=== PATIENT | female | born 1945 | race Caucasian/White ===

== ENCOUNTER 2025-06-05 11:03 | Emergency (ER) | payer MEDICARE, OTHER, SELFPAY ==
--- NOTE | ~2025-06-05 | XR_ITS ---
Examination: XR wrist RT min 3V Clinical History: post reduction Comparison: Earlier same day Technique: 3 views right wrist Findings/impression: 1. Improved alignment of distal radial fracture. Reviewed, dictated and finalized at location R. ECT CONTROL OFFICER
--- NOTE | ~2025-06-05 | XR_ITS ---
Examination: XR wrist RT min 3V Clinical History: GLF Comparison: None Technique: 4 views right wrist Findings/impression: 1. Comminuted impacted fracture distal radius with intra-articular extension and dorsal distal angulation. Reviewed, dictated and finalized at location R. AL TUBE WINDER HELPER
[2025-06-05 11:07] VITALS: BP 175/70; PULSE 70; RESP 20; TEMP 36.4; O2SAT 97
--- OUTSIDE RECORDS SUMMARY | 2025-06-05 11:32 | XMS_ITS | Encounter Summary ---
Author Organization [facility] Address [address] [place] [address] Care Team Providers Care Chain Testing Machine Operator Name Role Phone Dawson Bravo MD Primary Care Provider [phone] Haritha Chavira MD Primary Care Provider [phone] Reason for Visit * Reason Onset Date Comments MEDICATION REFILL 12/15/2024 Encounter Details Date Type Department Care Team (Late Contact Info) Description 12/15/2024 Refill [facility] - Family Medicine [address] [place] [address], [place] [phone] Haritha Chavira MD [address] [place] [phone] MEDICATION REFILL Social History Tobacco Use Types Packs/Day Years Used Date Smoking Tobacco: Never Passive Smoke Exposure: Never Smokeless Tobacco: Never Alcohol Use Standard Drinks/Week Comments No 0 (1 standard drink = 0.6 oz pur e alcohol) PHQ-2 Answer Date Recorded Patient Health Questionnaire-2 Score 0 05/26/2024 Comments No Sex and Gender Information Value Date Recorded Sex Assigned at Female 07/30/2021 1:48 PM PERFORMANCE IMPROVEMENT CONSULTANT Legal Sex Female 12:00 PM CDT Gender Identity Female 07/30/2021 1:48 PM PERFORMANCE IMPROVEMENT CONSULTANT Sexual Orientation Not on file documented as of this encounter Plan of Treatment Upcoming Encounters Date Type Department Care Team (Late Contact Info) Description 06/30/2025 10:00 AM PERFORMANCE IMPROVEMENT CONSULTANT Office Visit [facility] Family Medicine [address] [facility], [place] [phone] Haritha Chavira MD [address] [facility] [address] [place] [phone] 08/04/2025 9:00 AM PERFORMANCE IMPROVEMENT CONSULTANT Office Visit [facility] - ENT [address] [facility], [facility] [address] [place] [phone] Charito Castanon, AuD [address] [facility] [address] [place] [address] 08/04/2025 9:30 AM PERFORMANCE IMPROVEMENT CONSULTANT Testing Visit [facility] - ENT [address] [facility], [facility] [address] [place] [phone] Charito Castanon AuD [address] [facility] [address] [place] [address] 05/12/2026 8:30 AM PERFORMANCE IMPROVEMENT CONSULTANT Office Visit [facility] - INSPECTOR ASSEMBLY [address], [facility] [address] [place] [phone] Julita Spann MD [address] [facility] [address] [place] [address] documented as of this encounter Visit Diagnoses Not on filedocumented in this encounter Care Teams Chain Testing Machine Operator Relationship Specialty Start Date End Date Dawson Bravo MD PCP - General 04/07/19 01/26/25 Haritha Chavira MD [address] [facility] [address] [place] [address] PCP - General Family Medicine 01/27/25 documented as of this encounter
--- OUTSIDE RECORDS SUMMARY | 2025-06-05 11:32 | XMS_ITS | Encounter Summary ---
Author Organization [facility] Address [address] [place] [address] Care Team Providers Care Dental Specialist Name Role Phone Dawson Bravo MD Primary Care Provider [phone] Haritha Chavira MD Primary Care Provider [phone] Reason for Visit * Reason Onset Date Comments MEDICATION REFILL 10/27/2024 Encounter Details Date Type Department Care Team (Late Contact Info) Description 10/27/2024 Refill [facility] - Family Medicine [address] [place] [address], [place] [phone] Dawson Bravo MD [address] [place] [phone] MEDICATION REFILL Social History Tobacco Use Types Packs/Day Years Used Date Smoking Tobacco: Never Passive Smoke Exposure: Never Smokeless Tobacco: Never Alcohol Use Standard Drinks/Week Comments No 0 (1 standard drink = 0.6 oz pur e alcohol) PHQ-2 Answer Date Recorded Patient Health Questionnaire-2 Score 0 05/26/2024 Comments No Sex and Gender Information Value Date Recorded Sex Assigned at Female 07/30/2021 1:48 PM SPORTS MANAGEMENT PROFESSOR Legal Sex Female 12:00 PM CDT Gender Identity Female 07/30/2021 1:48 PM SPORTS MANAGEMENT PROFESSOR Sexual Orientation Not on file documented as of this encounter Plan of Treatment Upcoming Encounters Date Type Department Care Team (Late Contact Info) Description 06/30/2025 10:00 AM SPORTS MANAGEMENT PROFESSOR Office Visit [facility] - [facility] Medicine [address] [facility], [place] [phone] Haritha Chavira MD [address] [facility] [address] [place] [phone] 08/04/2025 9:00 AM SPORTS MANAGEMENT PROFESSOR Office Visit [facility] - ENT [address] [facility], [facility] [address] [place] [phone] Charito Castanon, AuD [address] [facility] [address] [place] [address] 08/04/2025 9:30 AM SPORTS MANAGEMENT PROFESSOR Testing Visit [facility] - ENT [address] [facility], [facility] [address] [place] [phone] Charito Castanon AuD [address] [facility] [address] [place] [address] 05/12/2026 8:30 AM SPORTS MANAGEMENT PROFESSOR Office Visit [facility] - CUSHION SEWER [address], [facility] [address] [place] [phone] Julita Spann MD [address] [facility] [place] [address] [place] [address] documented as of this encounter Visit Diagnoses Not on filedocumented in this encounter Care Teams Dental Specialist Relationship Specialty Start Date End Date Dawson Bravo MD PCP - General 04/07/19 01/26/25 Haritha Chavira MD [address] [facility] [address] [place] [address] PCP - General Family Medicine 01/27/25 documented as of this encounter
--- OUTSIDE RECORDS SUMMARY | 2025-06-05 11:32 | XMS_ITS | Clinical Summary ---
Author Organization [facility] Care Team Providers Care Commercial Assistant Name Role Phone Unavailable Primary Care Provider Unavailabl e Social History Tobacco Use Types Packs/Day Years Used Date Smoking Tobacco: Never Assessed Comments Unknown Sex and Gender Information Value Date Recorded Sex Assigned at Not on file Legal Sex Female 9:16 AM SPORTS MEDICINE SPECIALIST Gender Identity Not on file Sexual Orientation Not on file Plan of Treatment Health Maintenance Due Date Last Done Comments Hepatitis C Virus (HCV) Screening 1945 Pneumococcal Immunization (5 0+ years) (1 of 1 - PCV) 1995 Respiratory Syncytial Virus (RSV) Immunization (Adult) (1 - 1-dose 75+ series) 2020 Influenza Immunization (#1) 03/02/202504/01, 04/26/2015 SARS-COV-2 Immunization (2024- season) 2025 04/19/2021, 09/17/2020, 08/24/2020 DTaP/Tdap/Td Immunization Discontinued 12/04/2016 TdaP Immunization Completed 12/04/2016 Zoster Immunization Completed 07/10/2019, 03/25/2019 Hepatitis B Immunization Aged Out No longer eligible based on patient's age to complete this topic Human Papillomavirus (HPV) Immunization Aged Out No longer eligible based on patient's age to complete this topic Meningococcal Immunization (ACWY) Aged Out No longer eligible based on patient's age to complete this topic Rotavirus Immunization Aged Out No lo nger eligible based on patient's age to complete this topic
--- OUTSIDE RECORDS SUMMARY | 2025-06-05 11:32 | XMS_ITS | Clinical Summary ---
Author Organization [facility] Address [address] [place] [address] Care Team Providers Care Pediatric Licensed Practical Nurse Name Role Phone Dawson Bravo MD Primary Care Provider [phone] Allergies No known active allergies Medications levothyroxine (SYNTHROID) 100 mcg tablet daily Activ e amitriptyline (ELAVIL) 10 mg tablet Take 1 tablet (10 mg total) by mouth daily 90 tablet 3 9 Active propranolol (INDERAL) 20 mg tablet Take one tablet by mouth daily. 30 tablet 11 9 Active calcium carb/vit D3/minerals (CALCIUM-VITAM IN D ORAL) Take 2 tablets by mouth 9 Active Vitamin D2 1,250 mcg (50,000 unit) capsule TAKE 1 CAPSULE BY MOUTH EVERY 14 DAYS 0 Active nystatin ointment MIX WITH THE TRIAMCINOLONE OINTMENT AND APPLY TO EXTERNAL VULVAR TISSUES TWICE DAILY 0 Active triamcinolone (KENALOG) 0.1 % ointment MIX WITH THE NYSTATIN OINTMENT AND APPLY TO EXTERNAL VULVAR TISSUES TWICE DAILY. 0 Active atorvastatin (LIPITOR) 10 mg tablet 2 Active dicyclomine (BENTYL) 10 mg capsule Take 1 capsule (10 mg total) by mouth 5 Active verapamil ER (VERELAN) 120 mg 24 hr capsule Take 1 capsule (120 mg total) by mouth daily 5 Active Active Problems Problem Noted Date Diagnosed Date Subjective visual disturbance of both eyes 04/30 Assessment & Plan (04/30/2025 9:51 AM CDT): Transient blur in peripheral vision of each eye, lasting for approximately 5 minutes per episode. Resolved without recurrence. No signs of retinal pathology on exam today. Reassured patient. Call with any worsening/persistent symptoms. Retinal tear of left eye 09/27/2018 Assessment & Plan (04/30/2025 9:49 AM CDT): Stable. Observe. The signs and symptoms of retinal detachment were reviewed. Advised urgent evaluation with any onset. Assessment & Plan (04/22/2024 11:05 AM CDT): Well barricaded. No SRF. The signs and symptoms of retinal detachment were reviewed. Advised urgent evaluation with any onset. Assessment & Plan (04/17/2023 9:36 AM CDT): Well barricaded. No SRF. The signs and symptoms of retinal detachment were reviewed. Advised urgent evaluation with any onset. Assessment & Plan (01/26/2022 2:10 PM CDT): Exam stable today. The signs and symptoms of retinal detachment were reviewed. Advised urgent evaluation with any onset. F/u annually Assessment & Plan (01/24/2021 4:12 PM CDT): Stable s/p laser retinopexy. Stable. Observe. S/s of retinal detachment reviewed, advised urgent evaluation with any onset. Assessment & Plan (12/26/2019 10:47 AM CDT): Stable s/p laser retinopexy. No SRF. Re-evaluate annually. S/s of retinal detachment reviewed, advised urgent evaluation with any onset. Assessment & Plan (09/27/2018 11:36 AM CDT): S/p laser barricade years ago, stable. Observe. S/s of retinal detachment reviewed, advised urgent evaluation with any onset. 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 Observe. Assessment & Plan (04/17/2023 9:36 AM CDT): Stable. Observe. Assessment & Plan (01/26/2022 2:11 PM CDT): Stable. Observe. Assessment & Plan (01/24/2021 4:11 PM CDT): Stable CHRPE superiorly OD. Observe. Assessment & Plan (12/26/2019 10:46 AM CDT): Stable. Observe. Assessment & Plan (09/27/2018 11:37 AM CDT): Stable. Observe. PVD (posterior vitreous detachment), both eyes 0 09/27/2018 Assessment & Plan (04/17/2023 9:37 AM CDT): Stable. Observe. The signs and symptoms of retinal detachment were reviewed. Advised urgent evaluation with any onset. Assessment & Plan (01/26/2022 2:10 PM CDT): The signs and symptoms of retinal detachment were reviewed. Advised urgent evaluation with any onset. Stable. F/u annually. Assessment & Plan (01/24/2021 4:11 PM CDT): Stable. Observe. S/s of retinal detachment reviewed, advised urgent evaluation with any onset. Assessment & Plan (12/26/2019 10:46 AM CDT): S/s of retinal detachment reviewed, advised urgent evaluation with any onset. Assessment & Plan (09/27/2018 11:42 AM CDT): S/s of retinal detachment reviewed, advised urgent evaluation with any onset. Pseudophakia 08/24/2016 Assessment & Plan (04/30/2025 9:49 AM CDT): Stable. Observe. Assessment & Plan (04/22/2024 11:05 AM CDT): Stable. Observe. Assessment & Plan (04/17/2023 9:36 AM CDT): Clear OU. Pt to get updated Srx at outside optical. Assessment & Plan (01/26/2022 2:10 PM CDT): Stable. Observe. Assessment & Plan (01/24/2021 4:11 PM CDT): Clear OU. Stable. Observe. Assessment & Plan (12/26/2019 10:46 AM CDT): Clear OU. Stable. observe Assessment & Plan (09/27/2018 11:40 AM CDT): Stable. Observe. 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 Observe. Assessment & Plan (04/22/2024 11:05 AM CDT): Minimal residual effect. Inactive. Observe. Assessment & Plan (04/17/2023 9:36 AM CDT): Minimal residual effect. Observe. Assessment & Plan (01/26/2022 2:11 PM CDT): Minimal residual effect. Thyroid function well controlled. F/u annually. Assessment & Plan (01/24/2021 4:11 PM CDT): Minimal residual effect. Stable on exam. Thyroid function well controlled. Observe. Assessment & Plan (12/26/2019 10:46 AM CDT): Inactive. Stable. Observe. Assessment & Plan (09/27/2018 11:40 AM CDT): No proptosis. No exposure. ATs PRN. Anxiety 08/12/2007 Resolved Problems Problem Noted Date Diagnosed Date Resolved Date Subjective visual disturbance of both eyes 04/30/2025 04/30/2025 Tear film insufficiency 08/24/2016 07/2 11/2020 Encounters Date Type Department Care Team Description 04/30/2025 9:00 AM CDT Office Visit [facility] Medicine Ophthalmology [address] [place] [phone] Oscar Christiansen, TRISTEN Ophthalmic Graves disease (Primary Dx); Pseudophakia; Retinal tear of left eye; Subjective visual disturbance of both eyes from Last 3 Months Immunizations Immunization Administration Dates Next Due Td, adsorbed 02/02/2006 ZOSTER LIVE 03/08/2007 Surgical History Surgery Date Site/Laterality Comments CATARACT EXTRACTION Cataract Surgery - (Added by TW Conv) RETINAL LASER PROCEDURE Medical History Medical History Date Comments Personal history of other di seases of the nervous system and sense organs History of migraine - (Added by TW Conv) Personal history of other sp ecified conditions History of headache - (Added by TW Conv) Chronic tension-type headach e, not intractable Chronic tension-type headach e - (Added by TW Conv) Age-related nuclear cataract of left eye Age-related nuclear cataract of eye, left - (Added by TW Conv) Thyroid disease Retinal tear of left eye Family History Medical History Relation Name Comments Ovarian cancer Mother Macular degeneration Sister Diabetes Son Family history of diabetes mellitus - (Added by TW Conv) Breast cancer Neg Hx Glaucoma Neg Hx Relation Name Status Comments Mother Sister Son Social History Tobacco Use Types Packs/Day Years Used Date Smoking Tobacco: Never Alcohol Use Standard Drinks/Week Comments Not Currently 0 (1 standard drink = 0.6 oz pur e alcohol) Comments No Sex and Gender Information Value Date Recorded Sex Assigned at Not on file Legal Sex Female 11:30 PM CASE FINISHING MACHINE ADJUSTER Gender Identity Female 12/26/2019 9:50 AM CDT Sexual Orientation Not on file Obstetrics History Para Term AB IAB SAB Ectopic Multiple Livin g Live Births 2 2 2 Date Outcome GA Total Labor Labor/2nd/3rd Weight Sex Type Anes PTL Lakisha A1 A5 Name Clin Term Term Comments 06/22/55 Last Filed Vital Signs Vital Sign Reading Time Taken Comments Blood Pressure 134/76 08/25/2024 11:27 AM CASE FINISHING MACHINE ADJUSTER Pulse 69 03/17/2019 10:15 AM CDT Temperature - - Respiratory Rate 16 03/11/2018 10:26 AM CDT Oxygen Saturation 96% 03/17/2019 10:15 AM CDT Inhaled Oxygen Concentration - - Weight 62.1 kg (137 lb) 11/22/2024 10:31 AM CDT Height 170.2 cm (5' 7) 11/22/2024 10:31 AM CDT Body Mass Index 21.46 11/22/2024 10:31 AM CDT Plan of Treatment Health Maintenance Due Date Last Done Comments Depression Screening 1945 Fall Risk Assessment 1945 Hepatitis C Screening 1945 Hepatitis B Screening 1963 Covid-19 Vaccine (4 - 2024-2 6 season) 2025 04/19/2021, 09/17/2020, 08/24/2020 Influenza Vaccine (#1) 2025 , 04/20/2023, 04/10/2021, Additional history exists Well Visit 65+ 08/25/2025 08/25/2024, 07/02, 06/06/2022, Additional history exists Osteoporosis Screening-Bone Density Scan 10/28/2025 10/29/2023, 10/26/2021, 05/27/2019, Additional history exists DTaP/Tdap/Td Vaccine (4 - Td or Tdap) 12/04/2026 12/04/2016, 12/04/2016, 06/01/2006, Additional history exists Pneumococcal vaccine 65+ Completed 015, 01/30/2014, 06/01/2006 Zoster Vaccine Completed 07/10/2019, 03/03, 03/08/2007 Breast Cancer Screening-Mammogram Discontinued 11/22/2024, 11/10/2023, 10/31/2022, Additional history exists Procedures Procedure Name Priority Date/Time Associated Diagnosis Comments SCREENING MAMMOGRAM BILATERAL W [place] Schedule Routine, Read Routine (OP Routine) 11/22/2024 10:43 AM CDT Screening mammogram, encounter for DEXA AXIAL SKELETON BONE DENSITY 1 OR MORE SITES Schedule Routine, Read Routine (OP Routine) 10/29/2023 9:54 AM CDT Menopause from Last 3 Months or Most Recently Relevant to Health Maintenance Results * Screening Mammogram Bilateral W [place] (11/22/2024 10:43 AM CDT) Anatomical Region Laterality Modality Breast Bilateral Mammography Impressions 11/25/2024 9:09 AM CDT Bilateral No evidence of malignancy in either breast. OVERALL BI-RADS FINAL ASSESSMENT: 1 - Negative RECOMMENDATION: Recommend bilateral annual screening mammography. Narrative 11/25/2024 9:09 AM CDT EXAMINATION: Screening Mammogram Bilateral W [place]: 11/22/2024 COMPARISON: Relevant prior studies available at the time of interpretation were reviewed. TECHNIQUE: Mammography was performed with 2D and digital breast tomosynthesis (DBT) images. CAD was utilized. BREAST PARENCHYMAL COMPOSITION: The breasts are heterogeneously dense, which may obscure small masses. FINDINGS: Bilateral There is no suspicious mass, calcification, or architectural distortion in either breast. 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 LEFT HIP: Total BMD is 0.812 g/cm2 T-score is -1.1 This is increased in comparison to prior exam which is statistically significant. Femoral neck BMD is 0.681 g/cm2 T-score is -1.5 FRAX: 10 year risk for a major osteoporotic fracture is 17 %, 10 year risk for a hip fracture is 3.7 % IMPRESSION: Low Bone Mass. REFERENCE: Bone mineral density: T-Score: Normal (T-score above or = -1.0) Low bone mass (T-score between -1.0 and -2.5) replaces the previously used term osteopenia Osteoporosis (T-score = or below -2.5) Z-Score: Within the expected range for age (Z-score above -2.0) Below the expected range for age (Z-score is -2.0 or below) Please see below follow up recommendations. Medical evaluation for secondary causes of low bone mineral density may be appropriate. FRAX is a World Health Organization validated fracture risk assessment tool that calculates a person's 10 year probability of a major osteoporosis related fracture and hip fracture. According to the National Osteoporosis Foundation guidelines, postmenopausal women and men age 50 or older with low bone mass and a 10 year probability of a major osteoporosis related fracture = or greater than 20% or a 10 year probability of a hip fracture = or greater than 3% should be considered for pharmacological treatment for the prevention of osteoporosis. For further information, including treatment recommendations, please refer to the 2019 ISCD Official Positions (http://www.iscd.org) and the NOF's Clinician's Guide to Prevention and Treatment of Osteoporosis (http://www.nof.org/professionals/clinical-guidelines) THIS IS AN ELECTRONICALLY VERIFIED FINAL REPORT 10/29/2023 4:27 PM - Electronically signed by Vladimir Treadwell M.D. 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 LEFT HIP: Total BMD is 0.812 g/cm2 T-score is -1.1 This is increased in comparison to prior exam which is statistically significant. Femoral neck BMD is 0.681 g/cm2 T-score is -1.5 FRAX: 10 year risk for a major osteoporotic fracture is 17 %, 10 year risk for ahip fracture is 3.7 % IMPRESSION: Low Bone Mass. REFERENCE: Bone mineral density: T-Score: Normal (T-score above or = -1.0) Low bone mass (T-score between -1.0 and -2.5) replaces thepreviously used term osteopenia Osteoporosis (T-score = or below -2.5) Z-Score: Within the expected range for age (Z-score above -2.0) Below the expected range for age (Z-score is -2.0 or below) Please see below follow up recommendations. Medical evaluation forsecondary causes of low bone mineral density may be appropriate. FRAX is a World Health Organization validated fracture risk assessmenttool that calculates a person's 10 year probability of a major osteoporosisrelated fracture and hip fracture. According to the National OsteoporosisFoundation guidelines, postmenopausal women and men age 50 or older with low bonemass and a 10 year probability of a major osteoporosis related fracture = or greater than 20% or a 10 year probability of a hip fracture = or greaterthan 3% should be considered for pharmacological treatment for the preventionof osteoporosis. For further information, including treatment recommendations, please referto the 2019 ISCD Official Positions (http://www.iscd.org) and the NOF's Clinician's Guide to Prevention and Treatment of Osteoporosis (http://www.nof.org/professionals/clinical-guidelines) THIS IS AN ELECTRONICALLY VERIFIED FINAL REPORT 10/29/2023 4:27 PM - Electronically signed by Vladimir Treadwell M.D. MF: [email or web address] Report ID: [id number] Reading Location: [place] [address] Justino Kilgore MD IMG DXA PROCEDURES Sarah l Result from Last 3 Months or Most Recently Relevant to Health Maintenance Insurance [facility] [address] [facility] Care Teams Pediatric Licensed Practical Nurse Relationship Specialty Start Date End Date Dawson Bravo MD PCP - General Family Medicine 03/17/19
--- OUTSIDE RECORDS SUMMARY | 2025-06-05 11:32 | XMS_ITS | Encounter Summary ---
Author Organization [facility] Address [address] [facility] [place] [address] Care Team Providers Care Insurance Auditor Name Role Phone Haritha Chavira MD Primary Care Provider [phone] Reason for Visit * Reason Onset Date Comments MEDICATION REFILL 03/23/2025 Encounter Details Date Type Department Care Team (Late Contact Info) Description 03/23/2025 Refill [facility] - Family Medicine [address] [place] [phone] Haritha Chavira MD [address] [place] [phone] MEDICATION REFILL Social History Tobacco Use Types Packs/Day Years Used Date Smoking Tobacco: Never Passive Smoke Exposure: Never Smokeless Tobacco: Never Alcohol Use Standard Drinks/Week Comments No 0 (1 standard drink = 0.6 oz pur e alcohol) PHQ-2 Answer Date Recorded Patient Health Questionnaire-2 Score 0 01/27/2025 Comments No Sex and Gender Information Value Date Recorded Sex Assigned at Female 07/30/2021 1:48 PM TEST AUTOMATION ARCHITECT Legal Sex Female 12:00 PM CDT Gender Identity Female 07/30/2021 1:48 PM TEST AUTOMATION ARCHITECT Sexual Orientation Not on file documented as of this encounter Plan of Treatment Upcoming Encounters Date Type Department Care Team (Late Contact Info) Description 06/30/2025 10:00 AM TEST AUTOMATION ARCHITECT Office Visit [facility] - Family [address] [place] [address] Haritha Chavira MD [address] [facility] [address] [place] [phone] 08/04/2025 9:00 AM TEST AUTOMATION ARCHITECT Office Visit [facility] Group - ENT [address] [facility], [facility] 260 [place] [phone] Charito Castanon AuD [address] [address] 08/04/2025 9:30 AM TEST AUTOMATION ARCHITECT Testing Visit [facility]ician Group - ENT [address] [facility], [facility] 260 [place] [phone] Charito Castanon AuD [address] [address] 05/12/2026 8:30 AM TEST AUTOMATION ARCHITECT Office Visit [facility] Physician Group - AUDITOR IN CHARGE [address] [facility] [address] [place] [phone] Julita Spann MD [address] [facility] 400 [place] [address] documented as of this encounter Visit Diagnoses Not on filedocumented in this encounter Care Teams Insurance Auditor Relationship Specialty Start Date End Date Haritha Chavira MD [address] [place] [address] 2[address] [place] [phone] PCP - General Family Medicine 01/27/25 documented as of this encounter
--- OUTSIDE RECORDS SUMMARY | 2025-06-05 11:32 | XMS_ITS | Encounter Summary ---
Author Organization [facility] Address [address] [facility] [place] [address] Care Team Providers Care Dentist Name Role Phone Dawson Bravo MD Primary Care Provider [phone] Haritha Chavira MD Primary Care Provider [phone] Reason for Visit * Reason Onset Date Comments MEDICATION REFILL 09/25/2019 Encounter Details Date Type Department Care Team (Late st Contact Info) Description 09/25/2019 Refill [facility] Family and Community Medicine [address] [place] [phone] Dawson Bravo MD [address] [place] [phone] MEDICATION REFILL Social History Tobacco Use Types Packs/Day Years Used Date Smoking Tobacco: Never Smokeless Tobacco: Never Alcohol Use Standard Drinks/Week Comments No 0 (1 standard drink = 0.6 oz pur e alcohol) Comments No Sex and Gender Information Value Date Recorded Sex Assigned at Female 07/30/2021 1:48 PM MANUFACTURING DESIGN ENGINEER Legal Sex Female 12:00 PM CDT Gender Identity Female 07/30/2021 1:48 PM MANUFACTURING DESIGN ENGINEER Sexual Orientation Not on file documented as of this encounter Miscellaneous Notes * Telephone Encounter - Stephanie Augustin - 09/26/2019 9:14 AM CDT Refill Request Layne Whelan JR: May due: NOV scheduled: LRF: Qty Disp: 30 # of refills: 3 Allergies: No Known Allergies Pended Medication Order: Requested Prescriptions Pending Prescriptions Disp Refills ??? amitriptyline (ELAVIL) 10 MG tablet 30 tablet 3 Sig: Take 1 tablet by mouth at bedtime documented in this encounter Plan of Treatment Upcoming Encounters Date Type Department Care Team (Late st Contact Info) Description 06/30/2025 10:00 AM MANUFACTURING DESIGN ENGINEER Office Visit [facility] - Family Medicine [address] [place] [address], [facility] [place] [phone] Haritha Chavira MD [address] [place] [phone] 08/04/2025 9:00 AM MANUFACTURING DESIGN ENGINEER Office Visit [facility] - ENT [address] [facility], [facility] 260 [place] [phone] Charito Castanon, AuD [address] [phone] 08/04/2025 9:30 AM MANUFACTURING DESIGN ENGINEER Testing Visit [facility] - ENT [address] [facility], [facility] 260 [place] [phone] Charito Castanon AuD [address] [facility] 260 [place] [address] 05/12/2026 8:30 AM MANUFACTURING DESIGN ENGINEER Office Visit [facility] Physician Group - TREATMENT MANAGER [address], [facility] 200 [place] [address] Julita Spann MD [address] [facility] 400 [place] [address] documented as of this encounter Visit Diagnoses Not on filedocumented in this encounter Care Teams Dentist Relationship Specialty Start Date End Date Dawson Bravo MD PCP - General 04/07/19 01/26/25 Haritha Chavira MD [address] [place] [address] PCP - General Family Medicine 01/27/25 documented as of this encounter
--- OUTSIDE RECORDS SUMMARY | 2025-06-05 11:32 | XMS_ITS | Encounter Summary ---
Author Organization [facility] Address [address] [facility] [place] [address] Care Team Providers Care Lure Maker Name Role Phone Dawson Bravo MD Primary Care Provider [phone] Haritha Chavira MD Primary Care Provider [phone] Reason for Visit * Reason Onset Date Comments MEDICATION REFILL 01/18/2022 Encounter Details Date Type Department Care Team (Late st Contact Info) Description 01/18/2022 Refill [facility] Family and Community Medicine [address] [place] [address], [place] [phone] Dawson Bravo MD [address] [place] [phone] MEDICATION REFILL Social History Tobacco Use Types Packs/Day Years Used Date Smoking Tobacco: Never Smokeless Tobacco: Never Alcohol Use Standard Drinks/Week Comments No 0 (1 standard drink = 0.6 oz pur e alcohol) PHQ-2 Answer Date Recorded PHQ2 TOTAL SCORE 0 11/21/2021 Comments No Sex and Gender Information Value Date Recorded Sex Assigned at Female 07/30/2021 1:48 PM VOCATIONAL NURSE LVN Legal Sex Female 12:00 PM CDT Gender Identity Female 07/30/2021 1:48 PM VOCATIONAL NURSE LVN Sexual Orientation Not on file documented as of this encounter Miscellaneous Notes * Telephone Encounter - CharliJoselinsy - 01/18/2022 8:26 AM CDT Refill Request Layne Whelan JR: 11/21/21 NOV due: 0 NOV scheduled: Visit date not found LRF: 12/20/21 Qty Disp: 30 # of refills: 0 Allergies: No Known Allergies Pended Medication Order: Requested Prescriptions Pending Prescriptions Disp Refills ??? atorvastatin (LIPITOR) 10 MG tablet 30 tablet 0 Sig: Take 1 (one) tablet by mouth once daily documented in this encounter Plan of Treatment Upcoming Encounters Date Type Department Care Team (Late st Contact Info) Description 06/30/2025 10:00 AM VOCATIONAL NURSE LVN Office Visit [facility]ician Group - Family Medicine [address] [place] [address], [facility] [place] [phone] Haritha Chavira MD [address] [place] [phone] 08/04/2025 9:00 AM VOCATIONAL NURSE LVN Office Visit [facility] Physician Group - ENT [address] [facility], [address] [phone] Charito Castanon AuD [address] [address] 08/04/2025 9:30 AM VOCATIONAL NURSE LVN Testing Visit [facility]ician Group - ENT [address] [facility], [address] [phone] Charito Castanon AuD [address] [address] 05/12/2026 8:30 AM VOCATIONAL NURSE LVN Office Visit [facility] Physician Group - TRUCK OPERATOR [address], [facility] 200 [place] [address] Julita Spann MD [address] [facility] 400 [place] [address] documented as of this encounter Visit Diagnoses Not on filedocumented in this encounter Care Teams Lure Maker Relationship Specialty Start Date End Date Dawson Bravo MD PCP - General 04/07/19 01/26/25 Haritha Chavira MD [address] [place] [place] [phone] PCP - General Family Medicine 01/27/25 documented as of this encounter
--- OUTSIDE RECORDS SUMMARY | 2025-06-05 11:32 | XMS_ITS | Encounter Summary ---
Author Organization [facility] Address [address] [facility] [place] [address] Care Team Providers Care Sponge Fisherman Name Role Phone Dawson Bravo MD Primary Care Provider [phone] Haritha Chavira MD Primary Care Provider [phone] Reason for Visit * Reason Onset Date Comments MEDICATION REFILL 01/04/2024 Encounter Details Date Type Department Care Team (Late st Contact Info) Description 01/04/2024 Refill [facility] - Family Medicine [address] [place] [address], [place] [address] Haritha Chavira MD [address] [place] [phone] MEDICATION REFILL Social History Tobacco Use Types Packs/Day Years Used Date Smoking Tobacco: Never Passive Smoke Exposure: Never Smokeless Tobacco: Never Alcohol Use Standard Drinks/Week Comments No 0 (1 standard drink = 0.6 oz pur e alcohol) PHQ-2 Answer Date Recorded Patient Health Questionnaire-2 Score 1 05/29/2023 Comments No Sex and Gender Information Value Date Recorded Sex Assigned at Female 07/30/2021 1:48 PM HAT BRIM CURLER Legal Sex Female 12:00 PM CDT Gender Identity Female 07/30/2021 1:48 PM HAT BRIM CURLER Sexual Orientation Not on file documented as of this encounter Miscellaneous Notes * Telephone Encounter - Alyssia Bae - 01/04/2024 3:21 PM CDT Layne Whelan Requested Prescriptions Pending Prescriptions Disp Refills Synthroid 100 MCG tablet 90 tablet 1 Sig: Take 1 (one) tablet by mouth daily before breakfast No Known Allergies Last Refill:06/14/2023 Qty Dispense:90 # of Refills:1 Last OV:05/31/2023 Next OV:none documented in this encounter Plan of Treatment Upcoming Encounters Date Type Department Care Team (Late st Contact Info) Description 06/30/2025 10:00 AM HAT BRIM CURLER Office Visit [facility] - Family Medicine [address] [place] [address], [facility] [place] [phone] Haritha Chavira MD [address] [place] [phone] 08/04/2025 9:00 AM HAT BRIM CURLER Office Visit [facility] - ENT [address] [facility], [facility] 260 [place] [phone] Charito Castanon AuD [address] [facility] 260 [place] [address] 08/04/2025 9:30 AM HAT BRIM CURLER Testing Visit [facility] - ENT [address] [facility], [facility] 260 [place] [phone] Charito Castanon AuD [address] [facility] 260 [place] [address] 05/12/2026 8:30 AM HAT BRIM CURLER Office Visit [facility] Physician Group - TRIM CARPENTER [address], [facility] 200 [place] [phone] Julita Spann MD [address] [facility] 400 [place] [address] documented as of this encounter Visit Diagnoses Not on filedocumented in this encounter Care Teams Sponge Fisherman Relationship Specialty Start Date End Date Dawson Bravo MD PCP - General 04/07/19 01/26/25 Haritha Chavira MD [address] [place] [address] PCP - General Family Medicine 01/27/25 documented as of this encounter
--- OUTSIDE RECORDS SUMMARY | 2025-06-05 11:32 | XMS_ITS | Encounter Summary ---
Author Organization [facility] Address [address] [facility] [place] [address] Care Team Providers Care White Lead Grinder Name Role Phone Dawson Bravo MD Primary Care Provider [phone] Haritha Chavira MD Primary Care Provider [phone] Reason for Visit * Reason Onset Date Comments MEDICATION REFILL 01/18/2022 Encounter Details Date Type Department Care Team (Late st Contact Info) Description 01/18/2022 Refill [facility] Family and Community Medicine [address] [place] [address], [place] [phone] Dawson Bravo MD [address] [place] [phone] MEDICATION REFILL Social History Tobacco Use Types Packs/Day Years Used Date Smoking Tobacco: Never Smokeless Tobacco: Never Alcohol Use Standard Drinks/Week Comments No 0 (1 standard drink = 0.6 oz pur e alcohol) PHQ-2 Answer Date Recorded PHQ2 TOTAL SCORE 0 11/21/2021 Comments No Sex and Gender Information Value Date Recorded Sex Assigned at Female 07/30/2021 1:48 PM LEAD NUCLEAR MEDICINE TECHNOLOGIST Legal Sex Female 12:00 PM CDT Gender Identity Female 07/30/2021 1:48 PM LEAD NUCLEAR MEDICINE TECHNOLOGIST Sexual Orientation Not on file documented as of this encounter Miscellaneous Notes * Telephone Encounter - Alyssia Bae - 01/19/2022 7:52 AM CDT Layne Whelan Requested Prescriptions Pending Prescriptions Disp Refills ??? SYNTHROID 100 MCG tablet 135 tablet 0 Sig: Take 1 (one) tablet by mouth daily before breakfast No Known Allergies Last Refill:10/14/2021 Qty Dispense:135 # of Refills:0 Last OV:11/21/2021 Next OV:none documented in this encounter Plan of Treatment Upcoming Encounters Date Type Department Care Team (Late st Contact Info) Description 06/30/2025 10:00 AM LEAD NUCLEAR MEDICINE TECHNOLOGIST Office Visit [facility] Physician Group - Family Medicine [address] [place] [address], [place] [phone] Haritha Chavira MD [address] [place] [phone] 08/04/2025 9:00 AM LEAD NUCLEAR MEDICINE TECHNOLOGIST Office Visit [facility] Physician Group - ENT [address] [facility], [facility] 260 [place] [phone] Charito Castanon, AuD [address] [facility] 260 [place] [address] 08/04/2025 9:30 AM LEAD NUCLEAR MEDICINE TECHNOLOGIST Testing Visit [facility] Physician Group - ENT [address] [facility], [facility] 260 [place] [phone] Charito Castanon, AuD [address] [facility] 260 [place] [address] 05/12/2026 8:30 AM LEAD NUCLEAR MEDICINE TECHNOLOGIST Office Visit [facility] Physician Group - EXTRACT PULLER [address], [facility] 200 [place] [phone] Julita Spann MD [address] [facility] 400 [place] [address] documented as of this encounter Visit Diagnoses Not on filedocumented in this encounter Care Teams White Lead Grinder Relationship Specialty Start Date End Date Dawson Bravo MD PCP - General 04/07/19 01/26/25 Haritha Chavira MD [address] [place] [place] [address] PCP - General Family Medicine 01/27/25 documented as of this encounter
--- OUTSIDE RECORDS SUMMARY | 2025-06-05 11:32 | XMS_ITS | Encounter Summary ---
Author Organization [facility] Address [address] [facility] [place] [address] Care Team Providers Care Circuit Board Assembler Name Role Phone Dawson Bravo MD Primary Care Provider [phone] Haritha Chavira MD Primary Care Provider [phone] Reason for Visit * Reason Onset Date Comments MEDICATION REFILL 09/18/2020 Encounter Details Date Type Department Care Team (Late Contact Info) Description 09/18/2020 Refill [facility] Family [facility], [facility] Community Medicine [address] [place] [address] Dawson Bravo MD [address] [place] [phone] MEDICATION REFILL Social History Tobacco Use Types Packs/Day Years Used Date Smoking Tobacco: Never Smokeless Tobacco: Never Alcohol Use Standard Drinks/Week Comments No 0 (1 standard drink = 0.6 oz pur e alcohol) Comments No Sex and Gender Information Value Date Recorded Sex Assigned at Female 07/30/2021 1:48 PM JACK OF ALL TRADES Legal Sex Female 12:00 PM CDT Gender Identity Female 07/30/2021 1:48 PM JACK OF ALL TRADES Sexual Orientation Not on file documented as of this encounter Plan of Treatment Upcoming Encounters Date Type Department Care Team ([facility] Contact Info) Description 06/30/2025 10:00 AM JACK OF ALL TRADES Office Visit [facility] Physician Group - Family Medicine [address] [place] [phone] Haritha Chavira MD [address] [place] [phone] 08/04/2025 9:00 AM JACK OF ALL TRADES Office Visit [facility] - ENT [address] [facility] [address], [place] [address] [place] [phone] Charito Castanon AuD [address] [facility] [address] [place] [address] [place] [address] 08/04/2025 9:30 AM JACK OF ALL TRADES Testing Visit [facility] Physician Group - ENT [address] [facility] [address], [place] [address] [place] [phone] Charito Castanon AuD [address] [facility] [address] [facility] 260 [place] [address] 05/12/2026 8:30 AM JACK OF ALL TRADES Office Visit [facility] Physician Group - MANAGER DIGITAL [address], [facility] 200 [place] [phone] Julita Spann MD [address] [facility] 400 [place] [phone] documented as of this encounter Visit Diagnoses Not on filedocumented in this encounter Care Teams Circuit Board Assembler Relationship Specialty Start Date End Date Dawson Bravo MD PCP - General 04/07/19 01/26/25 Haritha Chavira MD [address] [place] [phone] PCP - General Family Medicine 01/27/25 documented as of this encounter
--- OUTSIDE RECORDS SUMMARY | 2025-06-05 11:32 | XMS_ITS | Clinical Summary ---
Author Organization [facility] Address [address] [facility] [place] [address] Care Team Providers Care Assistant Professor Of Geography Name Role Phone Haritha Chavira MD Primary Care Provider [phone] Source Comments [facility],non-owned Affiliates and Associated Physician Practices is amultiple site organization consisting of ambulatory clinics and hospital sitesin [place], [place], [place] and [place]. This disclosure is being madepursuant to the Care Everywhere program and may not contain all information available regarding this patient. Last updated 18.[facility] Allergies No known active allergies Medications * Be aware that medications may not be up to date on this document. Alwaysverify current medications with the patient. Multiple Vitamins-[place] als (MULTIVITAL) CHEW Take 1 tablet by mouth once daily Active CALCIUM-VITAMI N D Take 2 tablets by mouth once daily 9 Active vitamin D, ergocalciferol , (Drisdol) 1.25 MG (08425 UT) capsule Take 1 (one) capsule by mouth every 14 days 6 capsule 5 4 Active amitriptyline (Elavil) 10 MG tablet Take 1 (one) tablet by mouth every evening 90 tablet 3 5 Active propranolol (Inderal) 20 MG tablet Take 1 (one) tablet by mouth 2 times daily 180 tablet 3 5 12/17/19 26 Active dicyclomine (Bentyl) 10 MG capsule Take 1 (one) capsule by mouth 4 times daily as needed with food (abdominal spasm) 120 capsule 1 5 Active Synthroid 100 MCG tablet Take 1 (one) tablet by mouth daily before breakfast 90 tablet 5 Active atorvastatin (Lipitor) 10 MG tablet Take 1 (one) tablet by mouth once daily 90 tablet 5 Active verapamil SR 24hr (Verelan) 120 MG capsule Take 1 capsule by mouth once daily 90 capsule 5 Active sulfamethoxazo le-trimethopri m (Bactrim DS; Septra DS) 800-160 MG tabletIndicati ons:Dysuria Take 1 (one) tablet by mouth 2 times daily 14 tablet 5 Active nystatin (Mycostatin) 100457 UNIT/GM ointmentIndica tions:Erosive lichen planus of vulva Mix with the triamcinolone ointment and apply to external vulvar tissues daily. 30 g 30 g 2 5 Active triamcinolone acetonide (Kenalog) 0.1 % ointmentIndica tions:Erosive lichen planus of vulva Mix with the nystatin ointment and apply to external vulvar tissues daily. 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 Observe. PVD (posterior vitreous detachment), both eyes 0 09/27/2018 Overview (04/15/2020): Last Assessment & Plan: S/s of retinal detachment reviewed, advised urgent evaluation with any onset. Vitamin D deficiency 04/26/2018 Assessment & Plan (04/26/2018 11:59 AM CDT): Check level today, especially given prior osteoporosis (treated with Evista). Hyperlipidemia 04/25/2018 Assessment & Plan (04/26/2018 12:02 PM CDT): Lipids ordered today. Likely benefit of statin at this point is minimal, however. Sensorineural hearing loss (SNHL) of both ears 0 03/19/2017 Tinnitus, bilateral 03/19/2017 Pseudophakia 08/24/2016 Overview (04/15/2020): Last Assessment & Plan: Clear OU. Stable. observe Tear film insufficiency 08/24/2016 Atypical migraine 02/06/2014 Episodic tension-type headache 02/06/2014 Essential tremor 02/03/2014 Assessment & Plan (04/26/2018 12:02 PM CDT): Controlled with propanolol. 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 Stable. Observe. Essential tremor 11/18/2008 GERD (gastroesophageal reflux disease) 9 Hypothyroidism 11/18/2008 Assessment & Plan (04/26/2018 12:01 PM CDT): TSH today. Osteoporosis 11/18/2008 Assessment & Plan (04/26/2018 12:00 PM CDT): Reports unchanged BMD testing by news clipping cutter. Continue Evista, Ca/D TMJ (temporomandibular joint disorder) 9 Resolved Problems Problem Noted Date Diagnosed Date Resolved Date Retinal tear of left eye 09/27/2018 Overview (04/15/2020): Last Assessment & Plan: Stable s/p laser retinopexy. No SRF. Re-evaluate annually. S/s of retinal detachment reviewed, advised urgent evaluation with any onset. PVD (posterior vitreous deta chment), both eyes 09/27/2018 05/31/2023 Overview (03/29/2022): Last Assessment & Plan: The signs and symptoms of retinal detachment were reviewed. Advised urgent evaluation with any onset. Stable. F/u annually. Retinal tear of left eye 09/27/2018 Overview (03/29/2022): Last Assessment & Plan: Exam stable today. The signs and symptoms of retinal detachment were reviewed. Advised urgent evaluation with any onset. F/u annually Pseudophakia 08/24/2016 05/31/2023 Overview (03/29/2022): Last Assessment & Plan: Stable. Observe. Neck mass 02/22/2015 04/23/2024 Assessment & Plan (04/26/2018 12:01 PM CDT): Definitely palpable mass either overlying carotid bulb or is actual ectatic carotid bulb. Prior CT failed to demonstrate a mass, but she believes that the palpable mass she notes has enlarged. Will perform CT with contrast for comparative purposes. If no visible mass and no significant carotid ectasia, reassure. 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 Thyroid function well controlled. F/u annually. Encounters Date Type Department Care Team Description 05/27/2025 Travel 05/15/2025 Results Follow-Up [facility] - Family Medicine [address] [facility], [place] [address] Haritha Chavira MD 05/11/2025 Results Follow-Up [facility] - Family Medicine [address] [place] [address] Talia Jacobo MD 05/07/2025 Orders Only [facility] [address] [place] [address] Talia Jacobo MD Urinary tract infection without hematuria, site unspecified 05/06/2025 8:30 AM DELIVERY MAN Office Visit [facility] - LEACH TANK TENDER [address] [place] [phone] Julita Spann MD Erosive lichen planus of vulva (Primary Dx) 05/06/2025 Travel 04/17/2025 Refill [facility] Physician [address], [place] [address] Dawson Bravo MD Refill Request 04/05/[address], [place] [address] Dawson Bravo MD MEDICATION REFILL 03/23/[address], [place] [address] Haritha Chavira MD MEDICATION REFILL from Last 3 Months Immunizations Immunization Administration Dates Next Due INFLUENZA VACCINE, TRIV. (AF LURIA, FLUZONE TRIVALENT; 6MO+) (IIV3) 03/26/2014,04/23/2012,05/02/2009 COVID PFIZER 12+YR 30MCG/0.3mL 04/04/2024,2022 COVID PFIZER BIVALENT 12Y+ 30mcg/0.3ML 05/11/2022 Covid Pfizer primary Monoval ent 12+ yr 0.3ml 04/20/2023,01/23/2022 Covid Pfizer primary monoval ent 12+ yr 0.3mL Purple cap 04/19/2021,09/17/2020,08/24/2020 DTaP VACCINE IM (6wk-6yrs) 12/04/2016 INFLUENZA A [id number] VACCINE 07/02/2009 INFLUENZA VACCINE 04/20/2023,04/10/2021,04/05/20 10 INFLUENZA VACCINE, HIGH-DOSE , QUADR. (FLUZONE HIGH-DOSE QUADRIVALENT; 65Y+), 0.7 ML (HD-IIV4) 04/20/2023,04/07/2022,04/10/2021,2019,04/07/2019,03/27/2018,03/08/2017 INFLUENZA VACCINE, HIGH-DOSE , TRIV. (FLUZONE HIGH-DOSE TRIVALENT; 65Y+) (HD-IIV3) 04/04/2024,03/08/2017,04/26/2015 PNEUMOCOCCAL PCV7 CONJ, PEDS 06/01/2006 PNEUMOCOCCAL PPSV23 01/30/2014 Pneumococcal Pcv13 Conj 02/22/2015 RSV AREXVY 60YR+ 0.5ML 06/11/2023 TD (AGE 7-ADULT) 02/02/2006 TDAP (7yrs+) 12/04/2016,06/01/2006 Td (Adult), 2 Lf Tetanus Tox oid, Adsorbed, Pf 02/02/2006 ZOSTER VACCINE, LIVE 03/08/2007 Zoster Hzv Vacc Recombinant Inj Im 07/10/2019, Family History Medical History Relation Name Comments Diabetes - Type 2 Other son Macular Degeneration Sister Relation Name Status Comments Other son Alive Sister Alive Social History Tobacco Use Types Packs/Day Years Used Date Smoking Tobacco: Never Passive Smoke Exposure: Never Smokeless Tobacco: Never Tobacco Cessation:Counseling Given: Not Answered Alcohol Use Standard Drinks/Week Comments No 0 (1 standard drink = 0.6 oz pur e alcohol) PHQ-2 Answer Date Recorded Patient Health Questionnaire-2 Score 0 05/06/2025 Comments No Sex and Gender Information Value Date Recorded Sex Assigned at Female 07/30/2021 1:48 PM DELIVERY MAN Legal Sex Female 12:00 PM CDT Gender Identity Female 07/30/2021 1:48 PM DELIVERY MAN Sexual Orientation Not on file Last Filed Vital Signs Vital Sign Reading Time Taken Comments Blood Pressure 137/72 05/06/2025 8:30 AM DELIVERY MAN Pulse 78 01/27/2025 11:02 AM CDT Temperature 36 C (96.8 F) 05/06/2025 8:30 AM DELIVERY MAN Respiratory Rate 20 08/14/2022 1:00 PM DELIVERY MAN Oxygen Saturation 99% 01/27/2025 11: 02 AM CDT Inhaled Oxygen Concentration - - Weight 60.2 kg (132 lb 12.8 oz) 05/06/2025 8:30 AM DELIVERY MAN Height 170.2 cm (5' 7) 05/06/2025 8:30 AM DELIVERY MAN Body Mass Index 20.8 05/06/2025 8:30 AM DELIVERY MAN Plan of Treatment Upcoming Encounters Date Type Department Care Team (Late st Contact Info) Description 06/30/2025 10:00 AM DELIVERY MAN Office Visit [facility] - Family Medicine [address] [place] [address], [place] [address] Haritha Chavira MD [address] [place] [phone] 08/04/2025 9:00 AM DELIVERY MAN Office Visit [facility]ician Group - ENT [address] [facility], [facility] [address] [place] [phone] Charito Castanon AuD [address] [facility] [address] [place] [address] 08/04/2025 9:30 AM DELIVERY MAN Testing Visit [facility]ician Group - ENT [address] [facility], [facility] [address] [place] [phone] Charito Castanon AuD [address] [facility] [address] [place] [address] 05/12/2026 8:30 AM DELIVERY MAN Office Visit [facility] Physician Group - LEACH TANK TENDER [address], [facility] [address] [place] [phone] Julita Spann MD [address] [facility] [address] [place] [address] Health Maintenance Due Date Last Done Comments COVID-19 VACCINE ( season) 2025 04/04/2024, 04/20/2023, 04/20/2023, Additional history exists INFLUENZA VACCINE (#1) 2025 , 04/20/2023, 04/20/2023, Additional history exists MEDICARE AWV 12 MONTHS 06/02/2025 06/02/2024, 05/31/2023, 05/29/2022, Additional history exists DTAP/TDAP/TD VACCINES (6 - Td or Tdap) 12/04/2026 12/04/2016, 12/04/2016, 06/01/2006, Additional history exists PNEUMOCOCCAL VACCINE 50+ Completed 02/22/2015, 07/2013 ZOSTER VACCINE Completed 07/10/2019, 03/03, 03/08/2007 Respiratory Syncytial Virus (RSV) Vaccine Pt: or over 60 yrs Completed 06/11/2023 BONE DENSITY TESTING Completed 10/29/2023, 10/26/2021, 05/27/2019, Additional history exists DEPRESSION SCREENING Completed 01/27/2025, 06/02/2024, 06/02/2024, Additional history exists HEPATITIS B VACCINE Aged Out No longe r eligible based on patient's age to complete this topic HIB VACCINE Aged Out No longer eligi ble based on patient's age to complete this topic HPV VACCINE Aged Out No longer eligi ble based on patient's age to complete this topic MENINGOCOCCAL (Group B) VACCINE SHARED DECISION-MAKING Aged Out No longer eligible based on patient's age to complete this topic MENINGOCOCCAL GROUPS A/C/Y/W VACCINE Aged Out No longer eligible based on patient's age to complete this topic Procedures Procedure Name Priority Date/Time Associated Diagnosis Comments CULTURE URINE Routine 05/08/2025 10:09 AM DELIVERY MAN Urinary tract infection without hematuria, site unspecified URINALYSIS W/MICROSCOPIC REFLEX TO CULTURE Routine 04/30/2025 10:41 AM CDT Dysuria from Last 3 Months Results * CULTURE URINE (05/08/2025 10:09 AM DELIVERY MAN) Urine Culture Routine Final report [facility] INSURANCE BILL Comment: Performed at: - [address] [id number] Employee Benefits Administrator: Terrance Bhakta PhD, Phone: [phone] Result 1 Comment [facility] INSURANCE BILL Comment: Culture shows less than 10,000 colony forming units of bacteria per milliliter of urine. This colony count is not generally considered to be clinically significant. Urine URINE SPECIMEN OBTAINED BY CLEAN CATCH PROCEDURE / Unknown 05/08/2025 10:09 AM DELIVERY MAN 05/08/2025 Comment:UR Narrative [facility] INSURANCE BILL - 05/10/2025 3:35 AM DELIVERY MAN Performed at: - [facility] [address] [place], [place] [id number] Employee Benefits Administrator: Terrance Bhakta PhD, Phone: [phone] us Talia Jacobo MD LAB - MICROBIOLOGY ORDERABL ES Final Result [facility] INSURANCE BILL [address] [place] [address] * (ABNORMAL) URINALYSIS W/MICROSCOPIC REFLEX TO CULTURE (04/30/2025 10:41 AM CDT) Specific [place] UA 1.017 1.005 - 1.030 [facility] INSURANCE BILL pH UA 6.0 5.0 - 7.5 [facility] INSURANCE BILL Color UA Yellow Yellow [facility] INSURANCE BILL Appearance Cloudy(A) Clear [facility] INSURANCE BILL Leukocyte UA 2+(A) Negative [facility] INSURANCE BILL Protein UA Trace Negative/Tr roberth [facility] INSURANCE BILL Glucose UA 1+(A) Negative [facility] INSURANCE BILL Ketone UA Negative Negative [facility] INSURANCE BILL Occult Blood Urine 1+(A) Negative [facility] INSURANCE BILL Bilirubin UA Negative Negative [facility] INSURANCE BILL Urobilinogen 0.2 0.2 - 1.0 mg/dL [facility] INSURANCE BILL Nitrite UA Positive(A) Negative [facility] INSURANCE BILL Microscopic Examination Urine See below: [facility] INSURANCE BILL Comment:Microscopic was donna cated and was performed. Urinalysis Reflex Comment [facility] INSURANCE BILL Comment: This specimen has reflexed to a Urine Culture. Performed at: - [facility] [id number] Employee Benefits Administrator: Terrance Bhakta PhD, Phone: [phone] WBC UA >30(A) 0 - 5 /hpf [facility] INSURANCE BILL RBC UA None seen 0 - 2 /hpf [facility] INSURANCE BILL Epithelial Cells (non renal) None seen 0 - 10 /hpf [facility] INSURANCE BILL Casts ua None seen None seen /lpf [facility] INSURANCE BILL Bacteria UA Many(A) None seen/Few [facility] INSURANCE BILL Comment: Performed at: [facility] [id number] [place], [place] [id number] Employee Benefits Administrator: Terrance Bhakta PhD, Phone: [phone] Urine Culture Routine Final report(A) [facility] INSURANCE BILL Result 1 Escherichia coli(A) [facility] INSURANCE BILL Comment: Cefazolin with an CRIS <=16 predicts susceptibility to the oral agents cefaclor, cefdinir, cefpodoxime, cefprozil, cefuroxime, cephalexin, and loracarbef when used for therapy of uncomplicated urinary tract infections due to E. coli, Klebsiella pneumoniae, and Proteus mirabilis. Greater than 100,000 colony forming units per mL Antimicrobial Susceptibility Comment [facility] INSURANCE BILL Comment: S = Susceptible; I = Intermediate; R = Resistant P = Positive; N = Negative MICS are expressed in micrograms per mL Antibiotic RSLT#1 RSLT#2 RSLT#3 RSLT#4 Amoxicillin/Clavulanic Acid S<=2 Ampicillin S<=2 Cefazolin S<=1 Cefepime S<=0.12 Cefoxitin S<=4 Cefpodoxime S<=0.25 Ceftriaxone S<=0.25 Ciprofloxacin S<=0.06 Ertapenem S<=0.12 Gentamicin S<=1 Levofloxacin S<=0.12 Meropenem S<=0.25 Nitrofurantoin S =32 Piperacillin/Tazobactam S<=4 Tetracycline S<=1 Tobramycin S<=1 Trimethoprim/Sulfa S<=20 Urine URINE SPECIMEN OBTAINED BY CLEAN CATCH PROCEDURE / Unknown 04/30/2025 10:41 AM CDT 04/30/2025 Narrative [facility] INSURANCE BILL - 05/04/2025 8:09 PM DELIVERY MAN Performed at: [address] [id number] Employee Benefits Administrator: Terrance Bhakta PhD, Phone: [phone] us Haritha Chavira MD LAB - URINALYSIS ORDERABLES Fi nal Result [facility] INSURANCE BILL [address] [place] [address] from Last 3 Months Insurance MEDICARE [facility] Care Teams Assistant Professor Of Geography Relationship Specialty Start Date End Date Haritha Chavira MD [address] [place] [address] PCP - General Family Medicine 01/27/25
--- OUTSIDE RECORDS SUMMARY | 2025-06-05 11:32 | XMS_ITS | Encounter Summary ---
Author Organization [facility] Address [address] [facility] [place] [address] Care Team Providers Care Cardiopulmonary Specialist Name Role Phone Dawson Bravo MD Primary Care Provider [phone] Haritha Chavira MD Primary Care Provider [phone] Reason for Visit * Reason Onset Date Comments MEDICATION REFILL 03/19/2022 Encounter Details Date Type Department Care Team (Late st Contact Info) Description 03/19/2022 Refill [facility] Family and Community Medicine [address] [place] [address], [place] [phone] Dawson Bravo MD [address] [place] [phone] MEDICATION REFILL Social History Tobacco Use Types Packs/Day Years Used Date Smoking Tobacco: Never Smokeless Tobacco: Never Alcohol Use Standard Drinks/Week Comments No 0 (1 standard drink = 0.6 oz pur e alcohol) PHQ-2 Answer Date Recorded PHQ2 TOTAL SCORE 0 11/21/2021 Comments No Sex and Gender Information Value Date Recorded Sex Assigned at Female 07/30/2021 1:48 PM LINUX SOLARIS ADMINISTRATOR Legal Sex Female 12:00 PM CDT Gender Identity Female 07/30/2021 1:48 PM LINUX SOLARIS ADMINISTRATOR Sexual Orientation Not on file documented as of this encounter Miscellaneous Notes * Telephone Encounter - Alyssia Bae - 03/21/2022 1:28 PM CDT Layne Whelan Requested Prescriptions Pending Prescriptions Disp Refills ??? propranolol (Inderal) 20 MG tablet 90 tablet 3 Sig: Take 1 (one) tablet by mouth once daily No Known Allergies Last Refill:03/21/2021 Qty Dispense:90 # of Refills:3 Last OV:11/21/2021 Next OV:none documented in this encounter Plan of Treatment Upcoming Encounters Date Type Department Care Team (Late st Contact Info) Description 06/30/2025 10:00 AM LINUX SOLARIS ADMINISTRATOR Office Visit [facility] Group - Family Medicine [address] [place] [address], [facility] [place] [phone] Haritha Chavira MD [address] [place] [phone] 08/04/2025 9:00 AM LINUX SOLARIS ADMINISTRATOR Office Visit [facility]ician Group - ENT [address] [facility], [facility] [address] [place] [address] Charito Castanon AuD [address] [facility] [address] [place] [address] 08/04/2025 9:30 AM LINUX SOLARIS ADMINISTRATOR Testing Visit [facility] Group - ENT [address] [facility], [facility] [address] [place] [phone] Charito Castanon AuD [address] [facility] [address] [place] [address] 05/12/2026 8:30 AM LINUX SOLARIS ADMINISTRATOR Office Visit [facility] Physician Group - SURVEILLANCE SYSTEM MONITOR [address], [facility] [address] [place] [phone] Julita Spann MD [address] [facility] [address] [place] [address] documented as of this encounter Visit Diagnoses Not on filedocumented in this encounter Care Teams Cardiopulmonary Specialist Relationship Specialty Start Date End Date Dawson Bravo MD PCP - General 04/07/19 01/26/25 Haritha Chavira MD [address] [place] [address] PCP - General Family Medicine 01/27/25 documented as of this encounter
--- OUTSIDE RECORDS SUMMARY | 2025-06-05 11:32 | XMS_ITS | Encounter Summary ---
Author Organization [facility] Address [address] [place] [address] Care Team Providers Care Material Handling Equipment Stevedore Name Role Phone Dawson Bravo MD Primary Care Provider [phone] Haritha Chavira MD Primary Care Provider [phone] Reason for Visit * Reason Onset Date Comments MEDICATION REFILL 06/13/2020 Encounter Details Date Type Department Care Team (Late st Contact Info) Description 06/13/2020 Refill [facility] [address] [address] MEDICATION REFILL Social History Tobacco Use Types Packs/Day Years Used Date Smoking Tobacco: Never Smokeless Tobacco: Never Alcohol Use Standard Drinks/Week Comments No 0 (1 standard drink = 0.6 oz pur e alcohol) Comments No Sex and Gender Information Value Date Recorded Sex Assigned at Female 07/30/2021 1:48 PM VACUUM FORMING MACHINE OPERATOR Legal Sex Female 12:00 PM CDT Gender Identity Female 07/30/2021 1:48 PM VACUUM FORMING MACHINE OPERATOR Sexual Orientation Not on file documented as of this encounter Miscellaneous Notes * Telephone Encounter - Alyssia Bae - 06/14/2020 4:05 PM CST Called and left a message for pt to call office to let her noshe no longer need Vit D. UM FORMING MACHINE OPERATOR * Telephone Encounter - Cindy Davenport DO - 06/14/2020 12:17 PM VACUUM FORMING MACHINE OPERATOR Her vitamin D levels were normal recently, she no longer needs this high dose Vit D rx UM FORMING MACHINE OPERATOR * Telephone Encounter - lAyssia Bae - 06/14/2020 9:56 AM CST Layne Whelan Requested Prescriptions Pending Prescriptions Disp Refills ??? vitamin D, ergocalciferol, (DRISDOL) 1.25 MG (41224 UT) capsule 6 capsule 5 Sig: Take 1 capsule by mouth every 14 days No Known Allergies Last Refill:02/18/2019 Qty Dispense:6 # of Refills:5 Last OV:04/07/2019 Next OV:none UM FORMING MACHINE OPERATOR documented in this encounter Plan of Treatment Upcoming Encounters Date Type Department Care Team (Late st Contact Info) Description 06/30/2025 10:00 AM VACUUM FORMING MACHINE OPERATOR [facility] [address] [place] [address], [facility] [place] [phone] Haritha Chavira MD [address] [place] [phone] 08/04/2025 9:00 AM VACUUM FORMING MACHINE OPERATOR Office Visit [facility] ENT [address], [address] [phone] Charito Castanon AuD [address] [address] 08/04/2025 9:30 AM VACUUM FORMING MACHINE OPERATOR Testing Visit [facility] [address], [address] [phone] Charito Castanon AuD [address] [address] 05/12/2026 8:30 AM VACUUM FORMING MACHINE OPERATOR Office Visit [facility] - METALLIC YARN SLITTING MACHINE OPERATOR [address], [address] [place] [address] Julita Spann MD [address] [place] [address] documented as of this encounter Visit Diagnoses Not on filedocumented in this encounter Care Teams Material Handling Equipment Stevedore Relationship Specialty Start Date End Date Dawson Bravo MD PCP - General 04/07/19 01/26/25 Haritha Chavira MD [address] OF [place] [address] PCP - General Family Medicine 01/27/25 documented as of this encounter
--- OUTSIDE RECORDS SUMMARY | 2025-06-05 11:32 | XMS_ITS | Encounter Summary ---
Author Organization [facility] Address [address] [address] Care Team Providers Care Lens Edger Name Role Phone Haritha Chavira MD Primary Care Provider [phone] Encounter Details Date Type Department Care Team (Late Contact Info) Description 05/11/2025 Results Follow-Up [facility] - Family Medicine [address] [place] [address] Talia Jacobo MD [address] [address] Social History Tobacco Use Types Packs/Day Years Used Date Smoking Tobacco: Never Passive Smoke Exposure: Never Smokeless Tobacco: Never Alcohol Use Standard Drinks/Week Comments No 0 (1 standard drink = 0.6 oz pur e alcohol) PHQ-2 Answer Date Recorded Patient Health Questionnaire-2 Score 0 05/06/2025 Comments No Sex and Gender Information Value Date Recorded Sex Assigned at Female 07/30/2021 1:48 PM PLASTERER FOREMAN Legal Sex Female 12:00 PM CDT Gender Identity Female 07/30/2021 1:48 PM PLASTERER FOREMAN Sexual Orientation Not on file documented as of this encounter Plan of Treatment Upcoming Encounters Date Type Department Care Team (Late Contact Info) Description 06/30/2025 10:00 AM PLASTERER FOREMAN [facility] [address] [place] [phone] Haritha Chavira MD [address] [place] [phone] 08/04/2025 9:00 AM PLASTERER FOREMAN Office Visit [facility] - ENT [address] [facility], [facility] 260 [place] [phone] Charito Castanon AuD [address] [facility] 260 [place] [address] 08/04/2025 9:30 AM PLASTERER FOREMAN Testing Visit [facility] - ENT [address] [facility], [facility] 260 [place] [phone] Charito Castanon, AuD [address] [facility] 260 [place] [address] 05/12/2026 8:30 AM PLASTERER FOREMAN Office Visit [facility] - PHARMACOVIGILANCE SAFETY EXPERT [address], [facility] 200 [place] [phone] Julita Spann MD [address] [facility] 400 [place] [address] documented as of this encounter Visit Diagnoses Not on filedocumented in this encounter Care Teams Lens Edger Relationship Specialty Start Date End Date Haritha Chavira MD [address] [place] [phone] PCP - General Family Medicine 01/27/25 documented as of this encounter
--- OUTSIDE RECORDS SUMMARY | 2025-06-05 11:32 | XMS_ITS | Encounter Summary ---
Author Organization [facility] Address [address] [facility] [place] [address] Care Team Providers Care Forex Trader Name Role Phone Dawson Bravo MD Primary Care Provider [phone] Haritha Chavira MD Primary Care Provider [phone] Reason for Visit * Reason Onset Date Comments MEDICATION REFILL 12/17/2021 Encounter Details Date Type Department Care Team (Late st Contact Info) Description 12/17/2021 Refill [facility] [address] [place] [address], [place] [phone] Dawson Bravo MD [address] [place] [phone] MEDICATION REFILL Social History Tobacco Use Types Packs/Day Years Used Date Smoking Tobacco: Never Smokeless Tobacco: Never Alcohol Use Standard Drinks/Week Comments No 0 (1 standard drink = 0.6 oz pur e alcohol) PHQ-2 Answer Date Recorded PHQ2 TOTAL SCORE 0 11/21/2021 Comments No Sex and Gender Information Value Date Recorded Sex Assigned at Female 07/30/2021 1:48 PM PROFILING MACHINE SETUP OPERATOR Legal Sex Female 12:00 PM CDT Gender Identity Female 07/30/2021 1:48 PM PROFILING MACHINE SETUP OPERATOR Sexual Orientation Not on file documented as of this encounter Miscellaneous Notes * Telephone Encounter - Alyssia Bae - 12/20/2021 8:04 AM CDT Layne Whelan Requested Prescriptions Pending Prescriptions Disp Refills ??? atorvastatin (LIPITOR) 10 MG tablet 30 tablet 0 Sig: Take 1 (one) tablet by mouth once daily No Known Allergies Last Refill:11/21/2021 Qty Dispense:30 # of Refills:0 Last OV:11/21/2021 Next OV:NONE documented in this encounter Plan of Treatment Upcoming Encounters Date Type Department Care Team (Late st Contact Info) Description 06/30/2025 10:00 AM PROFILING MACHINE SETUP OPERATOR Office Visit [facility] - Family Medicine [address] [place] [address], [facility] [place] [phone] Haritha Chavira MD [address] [place] [phone] 08/04/2025 9:00 AM PROFILING MACHINE SETUP OPERATOR Office Visit [facility] - ENT [address] [facility] 260 [place] [phone] Charito Castanon, AuD [address] [facility] 260 [place] [address] 08/04/2025 9:30 AM PROFILING MACHINE SETUP OPERATOR Testing Visit [facility] - ENT [address] [facility], [facility] 260 [place] [phone] Charito Castanon, AuD [address] [facility] 260 [place] [address] 05/12/2026 8:30 AM PROFILING MACHINE SETUP OPERATOR Office Visit [facility] - PRODUCTION CREW SUPERVISOR [address], [facility] 200 [place] [phone] Julita Spann MD [address] [facility] 400 [place] [address] documented as of this encounter Visit Diagnoses Not on filedocumented in this encounter Care Teams Forex Trader Relationship Specialty Start Date End Date Dawson Bravo MD PCP - General 04/07/19 01/26/25 Haritha Chavira MD [address] [place] [place] [address] PCP - General Family Medicine 01/27/25 documented as of this encounter
--- OUTSIDE RECORDS SUMMARY | 2025-06-05 11:32 | XMS_ITS | Encounter Summary ---
Author Organization [facility] Address [address] [facility] [facility] [place] [address] Care Team Providers Care Research Agricultural Engineer Name Role Phone Dawson Bravo MD Primary Care Provider [phone] Haritha Chavira MD Primary Care Provider [phone] Reason for Visit * Reason Onset Date Comments MEDICATION REFILL 12/28/2022 Encounter Details Date Type Department Care Team (Late st Contact Info) Description 12/28/2022 Refill [facility] - Family Medicine [address] [place] [address], [facility] [place] [address] Dawson Bravo MD [address] [place] [phone] MEDICATION REFILL Social History Tobacco Use Types Packs/Day Years Used Date Smoking Tobacco: Never Passive Smoke Exposure: Never Smokeless Tobacco: Never Alcohol Use Standard Drinks/Week Comments No 0 (1 standard drink = 0.6 oz pur e alcohol) PHQ-2 Answer Date Recorded PHQ2 TOTAL SCORE 0 05/29/2022 Comments No Sex and Gender Information Value Date Recorded Sex Assigned at Female 07/30/2021 1:48 PM SKIFF OPERATOR Legal Sex Female 12:00 PM CDT Gender Identity Female 07/30/2021 1:48 PM SKIFF OPERATOR Sexual Orientation Not on file documented as of this encounter Miscellaneous Notes * Telephone Encounter - Sam Keene MA - 12/28/2022 9:35 AM CDT Refill Request Layne Whelan JR: 05/29/22 NOV due: none NOV scheduled: Visit date not found LRF: 11/20/22 Qty Disp: 45 # of refills: 0 Allergies: No Known Allergies Pended Medication Order: Requested Prescriptions Pending Prescriptions Disp Refills ??? Synthroid 100 MCG tablet 45 tablet 0 Sig: Take 1 (one) tablet by mouth daily before breakfast documented in this encounter Plan of Treatment Upcoming Encounters Date Type Department Care Team (Late st Contact Info) Description 06/30/2025 10:00 AM SKIFF OPERATOR Office Visit [facility] - Family Medicine [address] [place] [address], [facility] [place] [phone] Haritha Chavira MD [address] [place] [phone] 08/04/2025 9:00 AM SKIFF OPERATOR Office Visit [facility] - ENT [address] [facility], [address] [phone] Charito Castanon, AuD [address] [address] 08/04/2025 9:30 AM SKIFF OPERATOR Testing Visit [facility] - ENT [address] [facility], [facility] 260 [place] [phone] Charito Castanon, AuD [address] [address] 05/12/2026 8:30 AM SKIFF OPERATOR Office Visit [facility] - ENGINE MONITOR [address], [facility] 200 [place] [phone] Julita Spann MD [address] [facility] 400 [place] [address] documented as of this encounter Visit Diagnoses Not on filedocumented in this encounter Care Teams Research Agricultural Engineer Relationship Specialty Start Date End Date Dawson Bravo MD PCP - General 04/07/19 01/26/25 Haritha Chavira MD [address] [place] [address] PCP - General Family Medicine 01/27/25 documented as of this encounter
--- OUTSIDE RECORDS SUMMARY | 2025-06-05 11:32 | XMS_ITS | Encounter Summary ---
Author Organization [facility] Address [address] [facility] [place] [address] Care Team Providers Care Wrapper Counter Name Role Phone Haritha Chavira MD Primary Care Provider [phone] Encounter Details Date Type Department Care Team (Late Contact Info) Description 05/15/2025 Results Follow-Up [facility] - Family Medicine [address] [place] [phone] Haritha Chavira MD [address] [place] [phone] Social History Tobacco Use Types Packs/Day Years Used Date Smoking Tobacco: Never Passive Smoke Exposure: Never Smokeless Tobacco: Never Alcohol Use Standard Drinks/Week Comments No 0 (1 standard drink = 0.6 oz pur e alcohol) PHQ-2 Answer Date Recorded Patient Health Questionnaire-2 Score 0 05/06/2025 Comments No Sex and Gender Information Value Date Recorded Sex Assigned at Female 07/30/2021 1:48 PM TERRA COTTA SETTER Legal Sex Female 12:00 PM CDT Gender Identity Female 07/30/2021 1:48 PM TERRA COTTA SETTER Sexual Orientation Not on file documented as of this encounter Plan of Treatment Upcoming Encounters Date Type Department Care Team (Late Contact Info) Description 06/30/2025 10:00 AM TERRA COTTA SETTER Office Visit [facility] - [address] [phone] Haritha Chavira MD [address] [place] [phone] 08/04/2025 9:00 AM TERRA COTTA SETTER [facility] [address] [facility], [facility] 260 [place] [phone] Charito Castanon AuD [address] [facility] 260 [place] [address] 08/04/2025 9:30 AM TERRA COTTA SETTER Testing Visit [facility] - ENT [address] [facility] [address], [facility] 260 [place] [phone] Charito Castanon, AuD [address] [facility] 260 [place] [address] 05/12/2026 8:30 AM TERRA COTTA SETTER Office Visit [facility] - GEOLOGICAL TECHNICIAN [address], [facility] 200 [place] [phone] Julita Spann MD [address] [facility] 400 [place] [address] documented as of this encounter Visit Diagnoses Not on filedocumented in this encounter Care Teams Wrapper Counter Relationship Specialty Start Date End Date Haritha Chavira MD [address] [place] [phone] PCP - General Family Medicine 01/27/25 documented as of this encounter
--- OUTSIDE RECORDS SUMMARY | 2025-06-05 11:32 | XMS_ITS | Encounter Summary ---
Author Organization [facility] Address [address] [place] [address] Care Team Providers Care Surface Supervisor Name Role Phone Dawson Bravo MD Primary Care Provider [phone] Haritha Chavira MD Primary Care Provider [phone] Reason for Visit * Reason Onset Date Comments MEDICATION REFILL 05/13/2020 Encounter Details Date Type Department Care Team (Late st Contact Info) Description 05/13/2020 Refill [facility] [address] [place] [phone] Dawson Bravo MD [address] [place] [phone] MEDICATION REFILL Social History Tobacco Use Types Packs/Day Years Used Date Smoking Tobacco: Never Smokeless Tobacco: Never Alcohol Use Standard Drinks/Week Comments No 0 (1 standard drink = 0.6 oz pur e alcohol) Comments No Sex and Gender Information Value Date Recorded Sex Assigned at Female 07/30/2021 1:48 PM TIRE RECAPPING MACHINE OPERATOR Legal Sex Female 12:00 PM CDT Gender Identity Female 07/30/2021 1:48 PM TIRE RECAPPING MACHINE OPERATOR Sexual Orientation Not on file documented as of this encounter Miscellaneous Notes * Telephone Encounter - Alyssia Bae - 05/14/2020 7:56 AM CST Layne Whelan Requested Prescriptions Pending Prescriptions Disp Refills ??? SYNTHROID 112 MCG tablet 90 tablet 0 Sig: Take 1 tablet by mouth once daily No Known Allergies Last Refill:02/09/2020 Qty Dispense:90 # of Refills:0 Last OV:04/15/2020 Next OV:none RECAPPING MACHINE OPERATOR documented in this encounter Plan of Treatment Upcoming Encounters Date Type Department Care Team (Late st Contact Info) Description 06/30/2025 10:00 AM TIRE RECAPPING MACHINE OPERATOR Office Visit [facility] - Family Medicine [address] [place] [address], [place] [phone] Haritha Chavira MD [address] [place] [phone] 08/04/2025 9:00 AM TIRE RECAPPING MACHINE OPERATOR Office Visit [facility] - ENT [address] [facility], [place] [phone] Charito Castanon, AuD [address] [address] 08/04/2025 9:30 AM TIRE RECAPPING MACHINE OPERATOR Testing Visit [facility] - ENT [address] [facility], [facility] 260 [place] [phone] Charito Castanon, AuD [address] [address] 05/12/2026 8:30 AM TIRE RECAPPING MACHINE OPERATOR Office Visit [facility] - SEALANT MIXER [address], [facility] 200 [place] [address] Julita Spann MD [address] [facility] 400 [place] [address] documented as of this encounter Visit Diagnoses Not on filedocumented in this encounter Care Teams Surface Supervisor Relationship Specialty Start Date End Date Dawson Bravo MD PCP - General 04/07/19 01/26/25 Haritha Chavira MD [address] [place] [address] PCP - General Family Medicine 01/27/25 documented as of this encounter
--- NOTE | 2025-06-05 11:54 | ED.UPPEXIN ---
HPI - Extremity Injury (Upper) General Chief Complaint: Extremity Injury, Upper <NAT Disla Last Filed: 06/05/25 16:40> Stated Complaint: right wrist injury <NAT Disla Last Filed: 06/05/25 16:40> Time Seen by Provider: 06/05/25 11:12 <NAT Disla Last Filed: 06/05/25 16:40> Source: patient <NAT Disla Last Filed: 06/05/25 16:40> Mode of arrival: ambulatory <NAT Disla Last Filed: 06/05/25 16:40> Limitations: no limitations <NAT Disla Last Filed: 06/05/25 16:40> History of Present Illness HPI narrative: Patient is a 79-year-old female who presents the ED with report of a fall. Patient reports she slipped on ice and attempted to catch herself with her right wrist. Complains of pain and swelling to her right wrist. Did not hit her head or lose consciousness. Denies any other injuries. Denies numbness. Denies neck or back pain. Has not taken anything for pain <NAT Disla Last Filed: 06/05/25 16:40> Related Data Allergies/Adverse Reactions: Allergies Allergy/AdvReac Type Severity Reaction Status Date / Time No Known Allergies Allergy Unverified 05/11/17 10:56 <Brooklyn Chu PA-C - Last Filed: 06/05/25 16:40> Review of Systems Review of Systems: All systems reviewed & are unremarkable except as noted in HPI. <NAT Disla Last Filed: 06/05/25 16:40> All systems reviewed & are unremarkable except as noted in HPI and below <NAT Disla Last Filed: 06/05/25 16:40> Exam Narrative: GENERAL: Ederly but well appearing, thin, non-toxic, in no acute distress. HEAD: Normocephalic, atraumatic. RESPIRATORY: Airway patent, respirations nonlabored. CARDIOVASCULAR: Regular rate and rhythm without murmurs, rubs, or gallops. Radial pulses strong and easily palpable MUSCULOSKELETAL: Colles deformity to right wrist with swelling and diffuse tenderness. Sensation intact. Capillary refill intact throughout fingers. No tenderness throughout right elbow or right shoulder joint. SKIN: Warm, dry, normal color. NEURO: A&O X3. Speech clear. Cranial nerves II-XII grossly intact. Steady gait. No ataxic movements. PSYCHIATRIC: Appropriate mood and affect. Normal interaction. <Brooklyn Chu PA-C - Last Filed: 06/05/25 16:40> Course ASSISTANT PROFESSOR OF RELIGION/PA Physician Supervision I have reviewed the chart, discussed about the pt ,agree with management <Bill Rich MD - Last Filed: 06/05/25 17:23> Vital Signs Vital signs: Vital Signs Temperature 36.4 C L 06/05/25 11:07 Pulse Rate 70 06/05/25 11:07 Respiratory Rate 20 06/05/25 11:07 Blood Pressure 175/70 H 06/05/25 11:07 Pulse Oximetry 97 06/05/25 11:07 Oxygen Delivery Room Air 06/05/25 11:07 Temperature 36.4 C L 06/05/25 13:10 Pulse Rate 58 L 06/05/25 13:10 Respiratory Rate 16 06/05/25 13:10 Blood Pressure 152/71 H 06/05/25 13:10 Pulse Oximetry 100 06/05/25 13:10 Oxygen Delivery Room Air 06/05/25 13:10 <Brooklyn Chu PA-C - Last Filed: 06/05/25 16:40> Vital Signs Temperature 36.4 C L 06/05/25 11:07 Pulse Rate 70 06/05/25 11:07 Respiratory Rate 20 06/05/25 11:07 Blood Pressure 175/70 H 06/05/25 11:07 Pulse Oximetry 97 06/05/25 11:07 Oxygen Delivery Room Air 06/05/25 11:07 Temperature 36.4 C L 06/05/25 13:10 Pulse Rate 58 L 06/05/25 13:10 Respiratory Rate 16 06/05/25 13:10 Blood Pressure 152/71 H 06/05/25 13:10 Pulse Oximetry 100 06/05/25 13:10 Oxygen Delivery Room Air 06/05/25 13:10 <Bill Rich MD - Last Filed: 06/05/25 17:23> Procedures Orthopedic Fracture Reduction Fracture #1: Fracture Reduction date: 06/05/25 <Bill Rich MD - Last Filed: 06/05/25 17:23> Fracture Reduction time: 12:35 <Bill Rich MD - Last Filed: 06/05/25 17:23> Time Out Performed: Yes <Bill Rich MD - Last Filed: 06/05/25 17:23> Side: right <Bill Rich MD - Last Filed: 06/05/25 17:23> Fracture Reduction Location: radius <Bill Rich MD - Last Filed: 06/05/25 17:23> Analgesia: procedural sedation <Bill Rich MD - Last Filed: 06/05/25 17:23> Pre-Procedure Neuro Vascular Exam: normal <Bill Rich MD - Last Filed: 06/05/25 17:23> Technique: traction/counter-traction <Bill Rich MD - Last Filed: 06/05/25 17:23> Post Reduction X-rays Demonstrate: acceptable reduction <Bill Rich MD - Last Filed: 06/05/25 17:23> Post-reduction neuro exam: intact <Bill Rich MD - Last Filed: 06/05/25 17:23> Post-reduction vascular exam: intact <Bill Rich MD - Last Filed: 06/05/25 17:23> Splint Applied: Yes <Bill Rich MD - Last Filed: 06/05/25 17:23> Patient Tolerated Procedure: well <Bill Rich MD - Last Filed: 06/05/25 17:23> Orthopedic Splinting/Casting Injury #1: Splinting/Casting Date: 06/05/25 <Brooklyn Chu PA-C - Last Filed: 06/05/25 16:40> Splinting/Casting Time: 12:47 <Brooklyn Chu PA-C - Last Filed: 06/05/25 16:40> Side: right <Brooklyn Chu PA-C - Last Filed: 06/05/25 16:40> Upper Extremity Injury Location: wrist <Brooklyn Chu PA-C - Last Filed: 06/05/25 16:40> Splint: customized in ED <Brooklyn Chu PA-C - Last Filed: 06/05/25 16:40> OCL: volar <Brooklyn Chu PA-C - Last Filed: 06/05/25 16:40> Pre-Procedure Neuro Vascular Exam: normal <Brooklyn Chu PA-C - Last Filed: 06/05/25 16:40> Post-Procedure Neuro Vascular Exam: normal <Brooklyn Chu PA-C - Last Filed: 06/05/25 16:40> Other Orthopedic Equipment: other (sling) <Brooklyn Chu PA-C - Last Filed: 06/05/25 16:40> Procedural Sedation Procedural Sedation #1: Procedural Sedation Date: 06/05/25 <Bill Rich MD - Last Filed: 06/05/25 17:23> Procedural Sedation Time: 12:15 <Bill Rich MD - Last Filed: 06/05/25 17:23> Provider Performed: sedation and procedure <Bill Rich MD - Last Filed: 06/05/25 17:23> Informed Consent Obtained: yes <Bill Rich MD - Last Filed: 06/05/25 17:23> Equipment in Room: bag and mask, capnography, botany laboratory assistant, crash cart, oxygen, pulse oximeter and suction <Bill Rich MD - Last Filed: 06/05/25 17:23> Plan for Sedation: moderate sedation <Bill Rich MD - Last Filed: 06/05/25 17:23> ASA Class: II <Bill Rich MD - Last Filed: 06/05/25 17:23> Mallampati Classification: class I <Bill Rich MD - Last Filed: 06/05/25 17:23> NPO Status: last solid food (hours ago) (5) <Bill Rich MD - Last Filed: 06/05/25 17:23> Explanation to Patient/Family: Risk/Benefits/Alternatives and Pt/Family agreed with plan <Bill Rich MD - Last Filed: 06/05/25 17:23> Pt. Educated on Procedural Sedation: Yes <Bill Rich MD - Last Filed: 06/05/25 17:23> Re-evaluated immediately prior: Yes <Bill Rich MD - Last Filed: 06/05/25 17:23> Preparation: botany laboratory assistant applied, pulse oximeter, capnometry used and supplemental O2 applied <Bill Rich MD - Last Filed: 06/05/25 17:23> IV Propofol dose (mg): 40 <Bill Rich MD - Last Filed: 06/05/25 17:23> Patient Tolerated Procedure: well <Bill Rich MD - Last Filed: 06/05/25 17:23> Complications: none <Bill Rich MD - Last Filed: 06/05/25 17:23> Total Sedation Time (min): 10 <Bill Rich MD - Last Filed: 06/05/25 17:23> MDM MDM Narrative Medical decision making narrative: Patient presented to ED status post ground level mechanical fall with pain to right wrist. Deformity noted. Neurovascularly intact. Vital signs otherwise stable, slightly hypertensive, likely result of pain. Given pain control. Initially requested pill versus IV medication x-ray of right wrist showing comminuted distal radius fracture with dorsal angulation. consistent with exam and injury. patient denies any other injuries from the fall. Denies head injury or LOC. Discussed imaging findings with patient and need for reduction. IV placed. Given iv pain medication. Discussed risks and benefits. Patient voiced understanding and is in agreement with plan. Assisted by Dr. Rich, EDP. See procedure notes. Propofol used. patient tolerated procedure well. Placed in volar arm splint with sling. Postreduction films show near anatomic alignment. Discussed case with Dr. Mcneil, orthopedics, recommended to call office today for f/u early next week in office. Patient in agreement with plan. Feels comfortable going home. Pain medications sent to pharmacy. Given return precautions. Discharged in stable condition. <Brooklyn Chu PA-C - Last Filed: 06/05/25 16:40> Differential Diagnosis Differential Diagnosis: wrist sprain, wrist fracture, nerve injury, finger/hand fracture <Brooklyn Chu PA-C - Last Filed: 06/05/25 16:40> Lab Data MDM Lab Attestation statement: I personally reviewed the patient's lab results. <Brooklyn Chu PA-C - Last Filed: 06/05/25 16:40> Imaging Data Attestation: I personally reviewed and interpreted this imaging study as follows: <NAT Disla Last Filed: 06/05/25 16:40> Discharge Plan Discharge Clinical Impression: Closed fracture of distal end of right radius Qualifiers: Encounter type: initial encounter Fracture morphology: Lv' Qualified Code(s): S52.531A - Colles' fracture of right radius, initial encounter for closed fracture Fall due to ice or snow Qualifiers: Encounter type: initial encounter Qualified Code(s): W00.9XXA - Unspecified fall due to ice and snow, initial encounter <Brooklyn Chu PA-C - Last Filed: 06/05/25 16:40> Patient Disposition: Home <NAT Disla Last Filed: 06/05/25 16:40> Condition: Stable <NAT Disla Last Filed: 06/05/25 16:40> Instructions: Antibiotic Form, Wrist Fracture in Adults (ED), How to Use a Sling (ED), Splint Care (ED) <NAT Disla Last Filed: 06/05/25 16:40> Additional Instructions: Follow-up with orthopedics for further evaluation of wrist fracture. Call office today to make follow-up appointment early next week. Wear splint until seen by orthopedics. Continue Tylenol and Ibuprofen as needed for pain. [place] as needed for more severe pain. Recommend frequent icing to wrist, elevation of right arm. Return to the ED if you experience worsening or severe pain, recurrent injury, numbness, or any other symptoms of concern. <Brooklyn Chu PA-C - Last Filed: 06/05/25 16:40> Patient Language: Micronesian <Brooklyn Chu PA-C - Last Filed: 06/05/25 16:40> Prescriptions: New hydrocodone-acetaminophen 5-325 mg tablet 1 tablet PO Q6H PRN (Reason: pain) Qty: 15 0RF <Brooklyn Chu PA-C - Last Filed: 06/05/25 16:40> Follow-up/Referrals: PHYSICIAN,COIN COUNTER AND WRAPPER [Non-Staff, Internal Medicine] Gera Mcneil MD [Physician, Orthopedics] <Brooklyn Chu PA-C - Last Filed: 06/05/25 16:40> Time of Disposition: 13:22 <Brooklyn Chu PA-C - Last Filed: 06/05/25 16:40> 13:22 <Bill Rich MD - Last Filed: 06/05/25 17:23>
[2025-06-05] MEDS: HYDROmorphone HCL INJ (*CRX) 1 MG/ML SYR 0.5 MG IV PUSH (12:27)
[2025-06-05 12:40] VITALS: BP 178/81; PULSE 72; RESP 18; RESP 20; TEMP 36.4; O2SAT 98
--- NOTE | 2025-06-05 12:46 | PC.NURSE ---
40mg propofol was given IV push at 1240 by .
[2025-06-05 12:55] VITALS: BP 134/68; PULSE 60; RESP 20; TEMP 36.4; O2SAT 100
[2025-06-05 13:10] VITALS: BP 152/71; PULSE 58; RESP 16; TEMP 36.4; O2SAT 100
== END 2025-06-05 14:13 | disposition home or self-care (01) ==
PROVIDERS: Emergency Provider Physician Assistant
DX: S52.531A Colles' fracture of right radius, initial encounter for closed fracture (principal); W00.0XXA Fall on same level due to ice and snow, initial encounter
CPT/HCPCS: 25605; 73110; 96374; 96375; 99285; A4565; J1171